=== PATIENT | female | born 1985 | race Caucasian/White ===

== ENCOUNTER 2016-12-17 18:04 | Emergency (ER) ==
[2016-12-17 18:18] VITALS: BP 140/78
--- NOTE | 2016-12-17 18:42 | PROVIDER DOCUMENTATION ---
HPI-Musculoskeletal Pain/Inj - GENERAL Chief Complaint: Extremity Pain Stated Complaint: RT HAND FINGER INJ/SWELLING Time Seen by Provider: 12/17/16 18:23 Source: patient, family - HX OF PRESENT ILLNESS-MUSKULOSKELTAL Nature of Presenting Problem: Vital Signs Temp Pulse Resp BP Pulse Ox 12/17/16 18:15 97.5 F L 86 18 140/78 100 No Known Allergies Allergy (Verified 03/08/15 10:40) Benzonatate [Tessalon] 100 mg PO TID PRN PRN #20 capsule 03/08/15 Cephalexin [Keflex] 500 mg PO BID #14 capsule 03/08/15 Ondansetron HCl [Zofran] 4 mg PO Q4H PRN PRN #20 tablet 03/08/15 Sulfamethoxazole/Trimethoprim [Bactrim Ds Tablet] 1 each PO BID #10 tablet 12/17 Quality of Pain: reports: aching, other (RIGHT MIDDLE FINGER) Severity in ED: mild Onset/Duration: 4 days ago Timing: still present Modifying Factors: improves with: nothing Any recent injury?: No Locality of Occurance: Home Similar Symptoms Previously?: No Recently seen or treated by another doctor?: No - UPPER EXTREMITY PAIN/INJURY Extremities Pain Location: 3rd finger: right (PARONYCHIA--REDNESS PAIN AND SWELLING) Context / Method of Injury: denies: unknown, assault, burn, direct blow, fell, incised, motor vehicle accident, sports injury, twisted, other Associated Symptoms: reports: denies symptoms ("IT'S JUST BEEN RED AND SWOLLEN") Review of Systems - Adult - REVIEW OF SYSTEMS - ADULT Constitutional: reports: no symptoms reported Eyes: reports: no symptoms reported Ears, Nose, Mouth & Throat: reports: no symptoms reported Cardiovascular: reports: no symptoms reported Respiratory: reports: no symptoms reported Gastrointestinal: reports: no symptoms reported Genitourinary: reports: no symptoms reported Musculoskeletal: reports: see HPI Integumentary: reports: see HPI Neurological: reports: no symptoms reported Hematologic/Lymphatic: reports: no symptoms reported Allergic/Immunologic: reports: no symptoms reported All Other Systems: Reviewed and Negative Past History - Adult - PAST MEDICAL HISTORY-ADULT Review of Records: reports: Nursing Assessment Review, Medications Reviewed Major Childhood Illnesses: reports: denies history Cardiovascular: reports: denies history Respiratory: reports: denies history Gastrointestinal: reports: denies history Obstetrical/Gynecological: reports: denies history Genitourinary: reports: denies history Musculoskeletal: reports: denies history Neurological: reports: denies history Psychiatric: reports: denies history Endocrine/Immune: reports: denies history Other Conditions: reports: denies history - PRIOR SURGERIES/PROCEDURES Surgical/Procedure History: reports: none - IMMUNIZATION STATUS Childhood Immunizations: See Nurse Assessment Flu Vaccine: See Nurse Assessment - SOCIAL HISTORY Smoking: denies Substance Use: none/never Alcohol Use Frequency: never Living Situation: family Physical Exam-Injury Related - Physical Exam-Injury Related Initial Vital Signs Reviewed: Yes General Appearance: appears well Immobilization?: negative: backboard, C-collar, applied in ED, applied [employer] Eyes: PERRL/EOMI, pink conjunctivae Head, Ears, Nose, Mouth & Throat: moist mucous membranes Neck: normal inspection Respiratory: lungs clear Cardiovascular: regular rate, rhythm Peripheral Pulses: radial (R): 3+, radial (L): 3+ Female Genitalia/Pelvic Exam: deferred Lymphatic: no adenopathy Extremity: other (RIGHT MIDDLE FINGER WITH PARYONYCHIA--NO PUSTULE, NO DRAINAGE. ) Integumentary: warm/dry, other (REDNESS TO PROXIMAL NAIL RIGHT 3RD FINGER) Progress - PLAN OF CARE/RESULTS Progress/Plan/Lab Results: Vital Signs Temp Pulse Resp BP Pulse Ox 12/17/16 18:15 97.5 F L 86 18 140/78 100 No Known Allergies Allergy (Verified 03/08/15 10:40) Benzonatate [Tessalon] 100 mg PO TID PRN PRN #20 capsule 03/08/15 Cephalexin [Keflex] 500 mg PO BID #14 capsule 03/08/15 Ondansetron HCl [Zofran] 4 mg PO Q4H PRN PRN #20 tablet 03/08/15 Departure - Departure Time of Disposition Order: 18:42 DIAGNOSIS: Paronychia of finger of right hand Disposition: HOME 01 Certified Medical Emergency: Emergent Condition: Stable Additional Instructions: TAKE ALL OF ANTIBIOTIC. TAKE MOTRIN WITH FOOD FOR PAIN -- MAY TAKE OVER THE COUNTER 800MG WITH FOOD EVERY 8 HOURS FOR PAIN . KEEP ELEVATED. SOAK IN WARM SOAKS TWICE A DAY THEN APPLY OVER THE COUNTER ANTIBIOTIC OINTMENT. FOLLOW UP WITH YOUR PCP FOR FURTHER EVALUATION AND MANAGEMENT. RETURN TO ER FOR ANY WORSENING SYMPTOMS. ED Follow Up Instructions: You have been treated by a care provider in the Emergency Department. These instructions are being provided to you so you can have an understanding of how to care for yourself upon discharge. Upon discharge from the Emergency Department, you are responsible for making arrangements for follow-up care by a physician of your choice. Take all prescribed medications as directed. Return to the Emergency Department immediately for any new or worsening symptoms. You may call the Physician Referral phone number at [phone] to obtain a list of Physicians who are taking new patients. Prescriptions: Sulfamethoxazole/Trimethoprim [Bactrim Ds Tablet] 1 each PO BID #10 tablet Referrals: None,PCP [Primary Care Provider] - Forms: Return to School/Parent Work Instructions: Sia, [id number]
[2016-12-17] MEDS ORDERED: BACTROBAN OINTMENT TOP ONE (18:45)
--- NOTE | 2016-12-18 07:10 | Diag Imaging Result Document ---
PROCEDURE NAME: HAND COMPLETE RIGHT - 12/17/2016 RIGHT HAND, THREE VIEWS: FINDINGS: No fracture. No dislocation. IMPRESSION: No acute bony injury.
== END 2016-12-17 19:04 | disposition home or self-care (01) ==
LOC: ED 18:04
DX: L03.011 Cellulitis of right finger (principal); M79.644 Pain in right finger(s); L53.9 Erythematous condition, unspecified; R22.31 Localized swelling, mass and lump, right upper limb